=== PATIENT | male | born 1955 | race Caucasian/White ===

== ENCOUNTER 2016-04-26 13:36 | Emergency (ER) | payer MEDICARE, OTHER ==
[~2016-04-26] VITALS: Ht 177.8 cm; Wt 78.5 kg
[2016-04-26 17:13] LABS: Urine Bilirubin Negative (Negative); Urine Blood Negative /uL (Negative); Urine Color Yellow (Yellow); Urine Glucose Normal (Normal); Urine Ketone Negative (Negative); Urine Nitrite Negative (Negative); Urine RBC 5 /hpf (0 - 3); Urine Urobilinogen Normal (Negative); Urine pH 6.5 (5.0-8.0)
[2016-04-26] MEDS ORDERED: ONDANSETRON HCL 4 MG/2 ML VIAL IV ONE (19:30)
[2016-04-26] MEDS ORDERED: NALBUPHINE HCL 10 MG/1ml INJECTION IV ONE ×2 (19:30→21:00)
[2016-04-26 19:46] VITALS: BP 150/87
[2016-04-26] MEDS ORDERED: PROMETHAZINE HCL 25 MG/ML 1ML IV ONE (21:00)
== END 2016-04-26 21:18 | disposition home or self-care (01) ==
LOC: ER 13:41
DX: N40.1 Benign prostatic hyperplasia with lower urinary tract symptoms (principal); R33.8 Other retention of urine; I10 Essential (primary) hypertension
CPT/HCPCS: 51702; 81001; 96374; 96375; 96376; 99284; J2300; J2405; J2550; J7030